=== PATIENT | female | born 1995 | race Caucasian/White ===

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

== ENCOUNTER → 2017-11-21 | Outpatient (CLI) | payer BC | LOC: COL.VAS 14:03 | DX: R07.89 Other chest pain (principal) ==

== ENCOUNTER → 2023-04-23 | Outpatient (CLI) | payer BC | LOC: COL.RAD 14:32 | DX: R59.0 Localized enlarged lymph nodes (principal) ==